=== PATIENT | male | born 1935 | race Caucasian/White ===

== ENCOUNTER 2020-02-14 12:16 | Outpatient (CLI) | payer MEDICARE, SELFPAY | END 2020-02-14 12:17 | disposition home or self-care (01) | PROVIDERS: PCP Family Medicine; Visit Provider Internal Medicine Critical Care Medicine | DX: R91.1 Solitary pulmonary nodule (principal) | CPT/HCPCS: 86698 ==

== ENCOUNTER 2020-03-01 14:43 | Outpatient (CLI) | payer MEDICARE, SELFPAY ==
--- NOTE | 2020-03-01 15:05 | CT_ITS ---
WS: [id number] CT CHEST WITHOUT INTRAVENOUS CONTRAST HISTORY: Pulmonary nodule TECHNIQUE: Contiguous 5 mm axial imaging performed on the thorax. Coronal and sagittal reformats are submitted. All CT scans at [facility] use at least one of these dose optimization techniq ues: automated exposure control; mA and/or kV adjustment per patient size (includes targeted exams wh ere dose is matched to clinical indication); or iterative reconstruction. CONTRAST: None DLP: 475.85 mGy.cm COMPARISON: 12/22/2019 Lungs and central airway: Mild pulmonary hyperexpansion from emphysema. Ovoid 8mm nodule RIGHT upper lobe, image 20 of series 3 is stable. Stable ovoid subpleural nodule along the inferior RIGHT major f issure, image 34 of series 3, measures 7 mm. Nodule in the anterior RIGHT upper lobe is not as well v isualized today and slightly smaller and bilobed measuring 3 mm. This nodule seen on image 13 of seri es 3. Subpleural nodule along the LEFT major fissure measures 4 mm and stable, image 28 of series 3. No new pulmonary nodules. No pneumonia. Pleura: Normal. No pleural effusion. Heart and pericardium: Mildly enlarged heart. No pericardial effusion. Mediastinum and jhony: No adenopathy on this unenhanced study. Calcified nodes at the LEFT hilum. Vessels: Mild atherosclerosis of the aorta. Stable ascending aorta at 4.1 cm. Chest wall and lower neck: Subcentimeter LEFT thyroid nodule. Mild gynecomastia. Upper abdomen: Cholelithiasis without acute cholecystitis. No adrenal mass. Osseous structures: No osteoblastic or osteolytic bone disease. CT/CT chest wo con [id number] IMPRESSION: 1. Stable bilateral subcentimeter pulmonary nodules since 12/22/2019. Recommend interval 6-[address] follow-up to document continued stability. 2. Mild emphysema. 3. 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 4. Mild cardiomegaly. 5. Cholelithiasis.
== END 2020-03-01 14:44 | disposition home or self-care (01) ==
LOC: RADWPI 14:48
PROVIDERS: PCP Family Medicine; Visit Provider Internal Medicine Critical Care Medicine
DX: R91.1 Solitary pulmonary nodule (principal); E83.52 Hypercalcemia; J43.9 Emphysema, unspecified; I77.819 Aortic ectasia, unspecified site; K80.20 Calculus of gallbladder without cholecystitis without obstruction
CPT/HCPCS: 71250

== ENCOUNTER → 2020-08-14 11:43 | Outpatient (BNVA) | payer MEDICARE, SELFPAY | PROVIDERS: PCP Family Medicine; Visit Provider Internal Medicine Critical Care Medicine | DX: E83.52 Hypercalcemia (principal) | CPT/HCPCS: 80048 ==

== ENCOUNTER → 2020-09-03 09:52 | Outpatient (BNVA) | payer MEDICARE, SELFPAY | PROVIDERS: PCP Family Medicine; Referring Provider Internal Medicine Critical Care Medicine; Visit Provider Internal Medicine Critical Care Medicine | DX: E83.52 Hypercalcemia (principal) | CPT/HCPCS: 80048 ==

== ENCOUNTER → 2020-11-12 12:10 | Outpatient (BNVA) | payer MEDICARE, SELFPAY | PROVIDERS: PCP Family Medicine; Visit Provider Internal Medicine Critical Care Medicine | DX: E83.52 Hypercalcemia (principal) | CPT/HCPCS: 80048 ==

== ENCOUNTER → 2020-11-26 10:59 | Outpatient (BNVA) | payer MEDICARE, SELFPAY | PROVIDERS: PCP Family Medicine; Referring Provider Internal Medicine Critical Care Medicine; Visit Provider Internal Medicine Critical Care Medicine | DX: E83.52 Hypercalcemia (principal) | CPT/HCPCS: 80048 ==

== ENCOUNTER → 2020-12-16 10:54 | Outpatient (BNVA) | payer MEDICARE, SELFPAY | PROVIDERS: PCP Family Medicine; Visit Provider Internal Medicine Critical Care Medicine | DX: E83.52 Hypercalcemia (principal) | CPT/HCPCS: 80048 ==

== ENCOUNTER → 2021-01-27 09:02 | Outpatient (BNVA) | payer MEDICARE, SELFPAY | PROVIDERS: PCP Family Medicine; Referring Provider Internal Medicine Critical Care Medicine; Visit Provider Internal Medicine Critical Care Medicine | DX: E83.52 Hypercalcemia (principal) | CPT/HCPCS: 80048 ==

== ENCOUNTER 2021-04-16 12:00 | Outpatient (CLI) | payer MEDICARE, SELFPAY | END 2021-04-16 12:01 | disposition home or self-care (01) | LOC: SLEEP 04-21 09:38 | PROVIDERS: PCP Family Medicine; Visit Provider Internal Medicine Critical Care Medicine | DX: G47.30 Sleep apnea, unspecified (principal) | CPT/HCPCS: G0399 ==

== ENCOUNTER → 2021-06-17 11:11 | Outpatient (BNVA) | payer MEDICARE, SELFPAY | PROVIDERS: PCP Family Medicine; Referring Provider Internal Medicine Critical Care Medicine; Visit Provider Internal Medicine Critical Care Medicine | DX: E83.52 Hypercalcemia (principal) | CPT/HCPCS: 80048 ==